=== PATIENT | female | born 1955 | race Caucasian/White ===

== ENCOUNTER 2022-01-06 16:13 | Observation (INO) ==
[2022-01-06 17:11] LABS: Basophils # 0.1 K/mcL (0.0-0.2); Basophils % 0.8 %; Eosinophils # 0.1 K/mcL (0.0-0.6); Eosinophils % 1.1 %; Hematocrit 40.3 % (35.3-44.9); Hemoglobin 12.8 g/dL (11.5-15.4); Immature Granulocytes % 1.9 % (0-4); Lymphocytes # 1.4 K/mcL (0.6-4.6); Lymphocytes % 12.2 %; Mean Corpuscular HGB Conc 31.8 g/dL (31.6-35.5); Mean Corpuscular Hemoglobin 27.1 pg (28.0-33.3); Mean Corpuscular Volume 85.4 fL (83.0-100.0); Mean Platelet Volume 9.8 fL (9.4-12.4); Monocytes # 0.5 K/mcL (0.0-1.3); Monocytes % 4.5 %; Neutrophils # 8.9 K/mcL (1.6-8.9); Platelet Count 290 K/mcL (140-400); Red Blood Count 4.72 M/mcL (3.82-4.97); Segmented Neutrophils % 79.5 %; White Blood Count 11.2 K/mcL (4.3-11.1)
[2022-01-06 17:18] LABS: Prothrombin Time 11.2 Seconds (9.4-12.1)
[2022-01-06 17:21] LABS: Activated Partial Thrombo Time 29.1 Seconds (26.0-36.0)
[2022-01-06 17:30] LABS: BUN/Creatinine Ratio 21 (6-26); Blood Urea Nitrogen 21 mg/dL (8-23); Calcium 9.6 mg/dL (8.6-10.3); Carbon Dioxide 26 mEq/L (23-29); Chloride 98 mEq/L (98-107); Glucose 296 mg/dL (70-105); Lipase 24 Units/L (11-82); Osmolality,Calculated 296 (280-300); Sodium 136 mEq/L (136-145); eGFR For African Americans > 60 (> 60); eGFR For Non-African Americans 56 (> 60)
[2022-01-06 17:32] LABS: Troponin I < 0.03 ng/mL (< 0.04)
[2022-01-06 17:40] LABS: Bilirubin,Urine Negative (Negative); Blood,Urine Negative (Negative); Clarity,Urine Clear (Clear); Color,Urine Light-Yellow (Yellow); Glucose,Urine (UA) >=1000 mg/dL (Normal); Hyaline Casts,Urine Few per lpf (None Seen); Ketones,Urine 10 mg/dL (Negative); Leukocyte Esterase,Urine Negative (Negative); Mucus,Urine Few per lpf (None-Few); Nitrite,Urine Negative (Negative); PH,Urine 6.5 pH Units (5.0-8.0); Protein,Urine Trace mg/dL (Neg-Trace); RBC,Urine 0-3 per hpf (0-3); Specific Gravity,Urine 1.024 (1.010-1.025); Squamous Epithelial Cell,Urine Few per hpf (None-Few); Urobilinogen,Urine Normal (Normal); WBC,Urine 0-3 per hpf (0-3)
[2022-01-06 17:42] LABS: Influenza A PCR Negative (Negative); Influenza B PCR Negative (Negative); Resp. Syncytial Virus PCR Negative (Negative)
[2022-01-06 17:43] LABS: SARS-CoV-2 by PCR (In House) Negative (Negative)
[2022-01-06] MEDS ORDERED: predniSONE 20 MG TABLET PO ONE (17:53)
[2022-01-06] MEDS ORDERED: Aspirin 325 MG TABLET PO ONE (20:28)
[2022-01-06] MEDS ORDERED: Ondansetron 4 MG/2 ML VIAL IVP PRN (21:41)
[2022-01-06] MEDS ORDERED: Acetaminophen 325 MG TABLET PO PRN (21:41)
[2022-01-06] MEDS ORDERED: Naloxone 0.4 MG/ML INJ IVP PRN (21:41)
[2022-01-06] MEDS ORDERED: D5% in Water 1,000 ML IVC PRN (22:38)
[2022-01-06] MEDS ORDERED: *HR* Dextrose 50 % in Water (Syg) 50 ML SYRINGE IVP PRN (22:38)
[2022-01-06] MEDS ORDERED: Dextrose 4 GM Chewable Tablets PO PRN ×2 (22:38)
[2022-01-06] MEDS ORDERED: Albuterol 2.5 MG/3 ML NEBULIZER IH PRN (22:40)
[2022-01-06] MEDS ORDERED: Perflutren Lipid Microsphere 1.3 ML in 0.9 % Sodium Chloride 8.7 ML IVP PRN (22:46)
[2022-01-07] MEDS ORDERED: rOPINIRole 0.25 MG TABLET PO ONE (01:28)
[2022-01-07] MEDS: Melatonin 3 MG TABLET PO PRN ×2 (02:14→21:01)
[2022-01-07] MEDS: Insulin LISPRO 300 UNITS/3 ML VIAL SUBQ SCH ×5 (02:19→21:00)
[2022-01-07] MEDS: rOPINIRole 1 MG TABLET PO SCH ×4 (08:33→21:01)
[2022-01-07] MEDS ORDERED: *HR* Heparin 5,000 UNIT/ML VIAL IVP PRN ×2 (10:58)
[2022-01-07] MEDS ORDERED: *HR* Heparin 5,000 UNIT/ML VIAL IVP ONE (10:58)
[2022-01-07] MEDS: Heparin 25,000UNIT/250ML 1/2NS 25,000 UNIT/250 ML IV.SOLN IVC SCH (11:40)
[2022-01-07] MEDS: DilTIAZem CD (24hr) 180 MG CAP.ER.24H PO SCH (11:41)
[2022-01-07 12:30] LABS: Hematocrit 37.4 % (35.3-44.9); Mean Corpuscular HGB Conc 32.1 g/dL (31.6-35.5); Mean Corpuscular Hemoglobin 27.5 pg (28.0-33.3); Mean Corpuscular Volume 85.6 fL (83.0-100.0); Mean Platelet Volume 10.2 fL (9.4-12.4); Platelet Count 287 K/mcL (140-400); Red Blood Count 4.37 M/mcL (3.82-4.97); Red Cell Distribution Width 14.9 % (11.5-14.5); White Blood Count 15.4 K/mcL (4.3-11.1)
[2022-01-07 12:40] LABS: INR 1.1; Prothrombin Time 12.3 Seconds (9.4-12.1)
[2022-01-07 12:43] LABS: Heparin anti-factor XA UFH 1.23 IU/mL (0.30-0.70)
[2022-01-07 20:35] LABS: Estimated Average Glucose 177 mg/dl; Hemoglobin A1C 7.8 %
[2022-01-08 02:33] LABS: Chol/HDL Ratio 6.6 (0-4.9); Cholesterol 324 mg/dL (< 200); HDL Cholesterol 49 mg/dL (40-59); Triglycerides 430 mg/dL (< 150)
[2022-01-08] MEDS ORDERED: Regadenoson 0.4 MG/5 ML SYRINGE IVP ONE (08:24)
[2022-01-08 08:32] LABS: Basophils # 0.1 K/mcL (0.0-0.2); Basophils % 1.2 %; Eosinophils # 0.5 K/mcL (0.0-0.6); Eosinophils % 4.6 %; Hematocrit 39.4 % (35.3-44.9); Hemoglobin 12.2 g/dL (11.5-15.4); Lymphocytes # 3.1 K/mcL (0.6-4.6); Lymphocytes % 28.5 %; Mean Corpuscular Hemoglobin 26.7 pg (28.0-33.3); Mean Corpuscular Volume 86.2 fL (83.0-100.0); Mean Platelet Volume 9.8 fL (9.4-12.4); Monocytes % 8.9 %; Platelet Count 261 K/mcL (140-400); Red Blood Count 4.57 M/mcL (3.82-4.97); Red Cell Distribution Width 15.2 % (11.5-14.5); Segmented Neutrophils % 54.8 %; White Blood Count 10.9 K/mcL (4.3-11.1)
[2022-01-08] MEDS: Insulin LISPRO 300 UNITS/3 ML VIAL SUBQ SCH ×4 (08:33→20:28)
[2022-01-08 08:46] LABS: BUN/Creatinine Ratio 28 (6-26); Blood Urea Nitrogen 28 mg/dL (8-23); Calcium 8.8 mg/dL (8.6-10.3); Carbon Dioxide 28 mEq/L (23-29); Chloride 100 mEq/L (98-107); Glucose 166 mg/dL (70-105); Osmolality,Calculated 289 (280-300); Potassium 3.9 mEq/L (3.5-5.1); Sodium 135 mEq/L (136-145); eGFR For African Americans > 60 (> 60); eGFR For Non-African Americans 55 (> 60)
[2022-01-08] MEDS: Heparin 25,000UNIT/250ML 1/2NS 25,000 UNIT/250 ML IV.SOLN IVC SCH (11:00)
[2022-01-08] MEDS: DilTIAZem CD (24hr) 180 MG CAP.ER.24H PO SCH (12:19)
[2022-01-08] MEDS: rOPINIRole 1 MG TABLET PO SCH ×2 (12:19→20:27)
[2022-01-08] MEDS: predniSONE 20 MG TABLET PO SCH (12:20)
[2022-01-08] MEDS ORDERED: *HR* Midazolam HCl 2 MG/2 ML VIAL ONE (15:51)
[2022-01-08] MEDS ORDERED: *HR* FentaNYL (PF) 100 MCG/2 ML VIAL ONE (15:51)
[2022-01-08] MEDS ORDERED: Heparin 1,000 UNITS/500 mL 500 ML ONE (15:52)
[2022-01-08] MEDS ORDERED: Nitroglycerin 1,000 MCG/5 ML VIAL IV ONE (15:52)
[2022-01-08] MEDS ORDERED: *HR* Heparin 10,000 UNIT/10 ML VIAL ONE (15:52)
[2022-01-08] MEDS ORDERED: 0.9 % Sodium Chloride 1,000 ML ONE (15:52)
[2022-01-08] MEDS ORDERED: ISOVUE-370 200 ML INFUS..BTL ONE (15:52)
[2022-01-08] MEDS ORDERED: *HR* Ticagrelor 90 MG TABLET ONE (16:44)
[2022-01-08] MEDS ORDERED: Tirofiban 12.5 MG/250ML 12.5 MG/250 ML BAG ONE (17:05)
[2022-01-08] MEDS ORDERED: Tirofiban 12.5 MG/250ML 12.5 MG/250 ML BAG IVC SCH (17:15)
[2022-01-08] MEDS: *HR* Ticagrelor 90 MG TABLET PO SCH (20:27)
[2022-01-09 01:21] LABS: Basophils # 0.1 K/mcL (0.0-0.2); Basophils % 0.7 %; Eosinophils # 0.1 K/mcL (0.0-0.6); Eosinophils % 0.8 %; Hematocrit 36.5 % (35.3-44.9); Hemoglobin 11.4 g/dL (11.5-15.4); Lymphocytes % 18.1 %; Mean Corpuscular HGB Conc 31.2 g/dL (31.6-35.5); Mean Corpuscular Hemoglobin 26.5 pg (28.0-33.3); Mean Corpuscular Volume 84.9 fL (83.0-100.0); Mean Platelet Volume 9.8 fL (9.4-12.4); Monocytes # 0.9 K/mcL (0.0-1.3); Monocytes % 8.1 %; Neutrophils # 7.9 K/mcL (1.6-8.9); Platelet Count 286 K/mcL (140-400); Red Cell Distribution Width 15.2 % (11.5-14.5); Segmented Neutrophils % 70.3 %; White Blood Count 11.2 K/mcL (4.3-11.1)
[2022-01-09 01:41] LABS: BUN/Creatinine Ratio 28 (6-26); Blood Urea Nitrogen 28 mg/dL (8-23); Carbon Dioxide 24 mEq/L (23-29); Chloride 100 mEq/L (98-107); Glucose 238 mg/dL (70-105); Osmolality,Calculated 295 (280-300); Potassium 4.2 mEq/L (3.5-5.1); Sodium 136 mEq/L (136-145); eGFR For African Americans > 60 (> 60); eGFR For Non-African Americans 56 (> 60)
[2022-01-09] MEDS: rOPINIRole 1 MG TABLET PO SCH ×2 (07:53→11:53)
[2022-01-09] MEDS: predniSONE 20 MG TABLET PO SCH (07:53)
[2022-01-09] MEDS: *HR* Ticagrelor 90 MG TABLET PO SCH (07:53)
[2022-01-09] MEDS: DilTIAZem CD (24hr) 180 MG CAP.ER.24H PO SCH (07:53)
[2022-01-09] MEDS: Insulin LISPRO 300 UNITS/3 ML VIAL SUBQ SCH ×2 (07:55→11:54)
[2022-01-09] MEDS ORDERED: Aspirin Enteric Coated 81 MG Tablet PO SCH (09:15)
[2022-01-09 11:07] VITALS: BP 139/70; PULSE 75; TEMP 98.2; O2SAT 97
[2022-01-09] MEDS ORDERED: carvediloL 6.25 MG TABLET PO SCH (17:00)
[2022-01-09] MEDS ORDERED: Apixaban 5 MG TABLET PO SCH (21:00)
== END 2022-01-09 13:46 | disposition home or self-care (01) ==
LOC: EMEROOARM 16:13 → 3BNU 16:13 → SUATTDRO 20:41 → 3BNU 21:20
PROVIDERS: ADMIT Internal Medicine; ATTEND Registered Nurse

== ENCOUNTER 2022-01-20 19:43 | Observation (INO) ==
[2022-01-20 20:38] LABS: Basophils # 0.1 K/mcL (0.0-0.2); Basophils % 0.7 %; Eosinophils # 0.1 K/mcL (0.0-0.6); Eosinophils % 0.6 %; Hematocrit 34.3 % (35.3-44.9); Immature Granulocytes % 2.4 % (0-4); Lymphocytes # 1.7 K/mcL (0.6-4.6); Lymphocytes % 13.2 %; Mean Corpuscular HGB Conc 32.1 g/dL (31.6-35.5); Mean Corpuscular Hemoglobin 27.5 pg (28.0-33.3); Mean Corpuscular Volume 85.8 fL (83.0-100.0); Mean Platelet Volume 10.2 fL (9.4-12.4); Monocytes # 0.7 K/mcL (0.0-1.3); Monocytes % 5.8 %; Neutrophils # 9.7 K/mcL (1.6-8.9); Platelet Count 308 K/mcL (140-400); Red Cell Distribution Width 14.7 % (11.5-14.5); Segmented Neutrophils % 77.3 %; White Blood Count 12.6 K/mcL (4.3-11.1)
[2022-01-20 21:04] LABS: Alanine Aminotransferase 11 Units/L (7-52); Albumin 3.9 g/dL (3.5-5.7); Albumin/Globulin Ratio 1.3 (1.1-2.2); Alkaline Phosphatase 110 Units/L (34-104); Aspartate Amino Transferase 13 Units/L (13-39); BUN/Creatinine Ratio 20 (6-26); Bilirubin,Indirect 0.4 mg/dL (0.0-1.0); Bilirubin,Total 0.4 mg/dL (0.3-1.0); Blood Urea Nitrogen 18 mg/dL (8-23); Carbon Dioxide 25 mEq/L (23-29); Chloride 103 mEq/L (98-107); Glucose 225 mg/dL (70-105); Osmolality,Calculated 291 (280-300); Potassium 4.6 mEq/L (3.5-5.1); Sodium 136 mEq/L (136-145); Total Protein 6.9 g/dL (6.4-8.9); Troponin I < 0.03 ng/mL (< 0.04); eGFR For African Americans > 60 (> 60); eGFR For Non-African Americans > 60 (> 60)
[2022-01-20 21:55] LABS: INR 1.3; Prothrombin Time 14.8 Seconds (9.4-12.1)
[2022-01-20 21:59] LABS: Activated Partial Thrombo Time 31.1 Seconds (26.0-36.0)
[2022-01-20] MEDS ORDERED: Furosemide 20 MG/2 ML VIAL IVP ONE (22:49)
[2022-01-21 00:11] LABS: Influenza A PCR Negative (Negative); Influenza B PCR Negative (Negative); Resp. Syncytial Virus PCR Negative (Negative); SARS-CoV-2 by PCR (In House) Negative (Negative)
[2022-01-21] MEDS ORDERED: *HR* OxyCODONE Immed Rel 5 MG TABLET PO PRN (00:43)
[2022-01-21] MEDS ORDERED: Ondansetron ODT 4 MG TAB.RAPDIS SL PRN (00:43)
[2022-01-21] MEDS ORDERED: Melatonin 3 MG TABLET PO PRN (00:43)
[2022-01-21] MEDS ORDERED: Naloxone 0.4 MG/ML INJ IVP PRN (00:43)
[2022-01-21] MEDS ORDERED: *HR* HYDROcodone/Acet 5/325 mg TABLET PO PRN (00:43)
[2022-01-21] MEDS ORDERED: Acetaminophen 325 MG TABLET PO PRN (00:43)
[2022-01-21] MEDS ORDERED: Ipratropium/Albuterol Neb 3 ML IH PRN (00:47)
[2022-01-21] MEDS ORDERED: *HR* Dextrose 50 % in Water (Syg) 50 ML SYRINGE IVP PRN (01:23)
[2022-01-21] MEDS ORDERED: Dextrose Gel 15 GM/37.5 ML TUBE PO PRN ×2 (01:23)
[2022-01-21] MEDS ORDERED: D5% in Water 1,000 ML IVC PRN (01:23)
[2022-01-21] MEDS ORDERED: rOPINIRole 1 MG TABLET PO SCH (02:00)
[2022-01-21 02:27] LABS: Hematocrit 35.5 % (35.3-44.9); Hemoglobin 10.9 g/dL (11.5-15.4); Mean Corpuscular HGB Conc 30.7 g/dL (31.6-35.5); Mean Corpuscular Volume 84.7 fL (83.0-100.0); Platelet Count 313 K/mcL (140-400); Red Blood Count 4.19 M/mcL (3.82-4.97); Red Cell Distribution Width 14.6 % (11.5-14.5)
[2022-01-21 02:53] LABS: BUN/Creatinine Ratio 18 (6-26); Blood Urea Nitrogen 15 mg/dL (8-23); Calcium 9.1 mg/dL (8.6-10.3); Carbon Dioxide 28 mEq/L (23-29); Chloride 101 mEq/L (98-107); Chol/HDL Ratio 4.2 (0-4.9); Cholesterol 190 mg/dL (< 200); Glucose 150 mg/dL (70-105); HDL Cholesterol 45 mg/dL (40-59); LDL Cholesterol,Calculated 111 mg/dL (< 100); Magnesium 1.7 mg/dL (1.6-2.6); Osmolality,Calculated 290 (280-300); Phosphorous 2.7 mg/dL (2.7-4.5); Potassium 3.7 mEq/L (3.5-5.1); Sodium 138 mEq/L (136-145); Triglycerides 170 mg/dL (< 150); eGFR For African Americans > 60 (> 60); eGFR For Non-African Americans > 60 (> 60)
[2022-01-21 03:00] LABS: Thyroid Stimulating Hormone 3.151 mcIU/mL (0.340-5.600)
[2022-01-21 03:49] LABS: Bilirubin,Urine Negative (Negative); Blood,Urine Negative (Negative); Clarity,Urine Clear (Clear); Color,Urine Colorless (Yellow); Glucose,Urine (UA) Normal (Normal); Ketones,Urine Negative (Negative); Leukocyte Esterase,Urine Negative (Negative); Nitrite,Urine Negative (Negative); Protein,Urine Negative (Neg-Trace); Specific Gravity,Urine 1.009 (1.010-1.025); Urobilinogen,Urine Normal (Normal)
[2022-01-21] MEDS ORDERED: carvediloL 6.25 MG TABLET PO SCH (08:00)
[2022-01-21] MEDS ORDERED: Apixaban 5 MG TABLET PO SCH (09:00)
[2022-01-21] MEDS ORDERED: Aspirin Enteric Coated 81 MG Tablet PO SCH (09:00)
[2022-01-21] MEDS ORDERED: *HR* Ticagrelor 90 MG TABLET PO SCH (09:00)
[2022-01-21] MEDS ORDERED: Furosemide 40 MG/4 ML VIAL IVP SCH (09:00)
[2022-01-21] MEDS: rOPINIRole 0.25 MG TABLET PO SCH ×2 (09:14→12:37)
[2022-01-21] MEDS: Insulin LISPRO 300 UNITS/3 ML VIAL SUBQ SCH ×2 (09:16→12:37)
[2022-01-21 10:41] VITALS: BP 127/69; PULSE 72; TEMP 98.5; O2SAT 97
[2022-01-21] MEDS ORDERED: Cefdinir 300 MG CAPSULE PO SCH (11:45)
[2022-01-21] MEDS ORDERED: Insulin LISPRO 300 UNITS/3 ML VIAL SUBQ SCH (21:00)
== END 2022-01-21 14:22 | disposition home or self-care (01) ==
LOC: EMEROOARM 19:43 → 3BNU 19:43 → SUATTDRO 23:44 → 3BNU 01-21 00:45
PROVIDERS: ADMIT Internal Medicine; ATTEND Internal Medicine